=== PATIENT | male | born 1980 | race Caucasian/White ===

== ENCOUNTER → 2024-01-28 | Day surgery (SDC) | payer BC ==
[~2024-01-28] MED LIST: BUPROPION HCL150 M2 PO; DEXAMETHASONE SOD PHOS INJ 4 MG/ML SDV ONE; FENTANYL CITRATE/PF 100MCG/2 ML INJ ONE; KETOROLAC TROMETHAMINE 30 MG/ML VIAL ONE; LIDOCAINE HCL 2% LOCAL INJ 5 ML SDV VIAL INJ ONE; LYRICA50 MG PO; ONDANSETRON HCL INJ 2MG/ML 2ML 2 MG/ML VIAL ONE; PROPOFOL IV EMULSION 10 MG/ML 20 ML VIAL ONE
[2024-01-28] MEDS: LACTATED RINGER'S 1,000 ML ONE (09:25)
[2024-01-28] MEDS: ACETAMINOPHEN 1000 MG/100 ML 100 ML IV ONE (13:03)
[2024-01-28] MEDS: ACETAMINOPHEN/CODEINE 300MG - 30MG TAB ONE (13:20)
[2024-01-28 13:30] VITALS: BP 124/89; PULSE 76; RESP 15; O2SAT 97
== END | disposition home or self-care (01) ==
LOC: OR 08:15
PROVIDERS: ATTEND Specialist
DX: G56.02 Carpal tunnel syndrome, left upper limb (principal); Z71.3 Dietary counseling and surveillance; Z71.82 Exercise counseling; K21.9 Gastro-esophageal reflux disease without esophagitis; E66.9 Obesity, unspecified; F41.9 Anxiety disorder, unspecified; F32.A Depression, unspecified; Z01.810 Encounter for preprocedural cardiovascular examination; Z79.899 Other long term (current) drug therapy; Z68.41 Body mass index [BMI] 40.0-44.9, adult
CPT/HCPCS: 93005; J0690; J1100; J1885; J2001; J2405